=== PATIENT | female | born 2000 | race Caucasian/White ===

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

== ENCOUNTER 2019-07-24 08:14 | Inpatient (IN) | payer MEDICAID, OTHER ==
[~2019-07-24] VITALS: Ht 165.1 cm; Wt 60.3 kg
[~2019-07-24 08:14] MED LIST: DIVA500T52 PO; OLAN10TA20 PO
[2019-07-24] MEDS ORDERED: LORazepam 1 MG TABLET PO ONE ×2 (08:45)
[2019-07-24] MEDS ORDERED: HALOPERIDOL 5 MG TABLET PO ONE (08:45)
[2019-07-24] MEDS ORDERED: DiphenhydrAMINE HCL 25 MG CAPSULE PO ONE (08:45)
[2019-07-24 08:47] LABS: BASOPHILS % (AUTO) 0.7 % (0.0-2.0); EOSINOPHILS % (AUTO) 0 % (1.0-6.0); HEMATOCRIT 41.4 % (36-46); HEMOGLOBIN 14.1 g/dL (12.0-16.0); LYMPHOCYTES # (AUTO) 2.3 K/uL (1.0-4.8); LYMPHOCYTES % (AUTO) 16.8 % (22.0-44.0); MEAN CORPUSCULAR HEMOGLOBIN 30.2 pg (26.0-34.0); MEAN CORPUSCULAR HGB CONC 34.1 G/dL (31.0-37.0); MEAN CORPUSCULAR VOLUME 89 fL (80-100); MONOCYTES # (AUTO) 0.9 K/uL (0.1-1.0); MONOCYTES % (AUTO) 6.5 % (2.0-9.0); NEUTROPHILS # (AUTO) 10.3 K/uL (1.8-7.7); PLATELET COUNT (AUTO) 335 K/uL (150-450); RED BLOOD CELL COUNT(AUTO) 4.66 MIL/uL (4.00-5.20); RED CELL DISTRIBUTION WIDTH 12.8 % (11.5-14.5)
[2019-07-24 08:51] LABS: ANION GAP 11 mmol/L (8-16); CALCIUM, TOTAL 9.1 mg/dL (8.8-10.5); CARBON DIOXIDE 27 mmol/L (22-29); CHLORIDE 102 mmol/L (98-107); CREATININE 0.87 mg/dL (0.60-1.30); GLOMERULAR FILTR. RATE CALC > 60 mL/min (>60); GLUCOSE,RANDOM 87 mg/dL (70-110); POTASSIUM 3.1 mmol/L (3.5-5.1); SODIUM SERUM 140 mmol/L (136-145); UREA NITROGEN, BLOOD 10 mg/dL (7-18)
[2019-07-24 09:02] LABS: ALANINE AMINOTRANSFERASE 25 U/L (12-78); ALBUMIN 3.8 g/dL (3.4-5.0); ALKALINE PHOSPHATASE 92 U/L (46-116); ASPARTATE AMINOTRANSFERASE 16 U/L (15-37); BILIRUBIN,TOTAL 0.6 mg/dL (0.1-1.0); HCG,QUANTITATIVE < 1 mIU/mL (0-6); TOTAL PROTEIN, SERUM 7.7 g/dL (6.4-8.2); VALPROIC ACID 80 mcg/mL (50-100)
[2019-07-24] MEDS ORDERED: POTASSIUM CHLORIDE 20 MEQ ER TABLET PO ONE (09:30)
[2019-07-24 09:38] LABS: AMPHET/METH SCREEN,URINE POSITIVE (NEGATIVE); BARBITURATE SCREEN, URINE NEGATIVE (NEGATIVE); BENZODIAZEPINES SCREEN,URINE NEGATIVE (NEGATIVE); CANNABINOID SCREEN,URINE POSITIVE (NEGATIVE); COCAINE SCREEN,URINE NEGATIVE (NEGATIVE); METHADONE SCREEN, URINE NEGATIVE (NEGATIVE); OPIATE SCREEN,URINE NEGATIVE (NEGATIVE)
[2019-07-24 09:39] LABS: PHENCYCLIDINE SCREEN,URINE NEGATIVE (NEGATIVE)
[2019-07-24 16:00] VITALS: BP 128/78
[2019-07-24] MEDS ORDERED: GuaiFENesin/D-METHORPHAN [SUGAR-FREE] 200-20MG/10 ML SYRUP UDCUP PO PRN (16:15)
[2019-07-24] MEDS ORDERED: MAG HYDROX/AL HYDROX/SIMETH ES 30 ML SUSPENSION UDCUP PO PRN (16:15)
[2019-07-24] MEDS ORDERED: DOCUSATE SODIUM 100 MG CAPSULE PO PRN (16:15)
[2019-07-24] MEDS ORDERED: IBUPROFEN 400 MG TABLET PO PRN (16:15)
[2019-07-24] MEDS ORDERED: ACETAMINOPHEN 325 MG TABLET PO PRN (16:15)
[2019-07-24] MEDS ORDERED: NICOTINE 14 MG/24 HOUR PATCH TD PRN (16:15)
[2019-07-24] MEDS ORDERED: MAGNESIUM HYDROXIDE SUSPENSION 30 ML UDCUP PO PRN (16:15)
[2019-07-24] MEDS ORDERED: PETROLATUM,WHITE 28 GM JELLY TP PRN (16:15)
[2019-07-24] MEDS ORDERED: LOPERAMIDE HCL 2 MG CAPSULE PO PRN (16:15)
[2019-07-24] MEDS ORDERED: ALBUTEROL SULFATE HFA 90 MCG/PUFF 8 GM INHALER IH PRN (16:15)
[2019-07-24] MEDS ORDERED: CloNIDine HCL 0.1 MG TABLET PO PRN (16:15)
[2019-07-24] MEDS ORDERED: ONDANSETRON HCL 4 MG TABLET PO PRN (16:15)
[2019-07-24] MEDS ORDERED: INFLUENZA VIRUS VACCINE QVS 2019-20 (3YR+)/PF 60 MCG/0.5 ML SYRINGE IM ONE (16:45)
[2019-07-25 00:29] VITALS: BP 111/71
[2019-07-25 07:31] LABS: BASOPHILS % (AUTO) 1.4 % (0.0-2.0); EOSINOPHILS % (AUTO) 1.4 % (1.0-6.0); HEMATOCRIT 40.4 % (36-46); HEMOGLOBIN 13.6 g/dL (12.0-16.0); LYMPHOCYTES # (AUTO) 2.7 K/uL (1.0-4.8); LYMPHOCYTES % (AUTO) 44.6 % (22.0-44.0); MEAN CORPUSCULAR HEMOGLOBIN 30.1 pg (26.0-34.0); MEAN CORPUSCULAR HGB CONC 33.6 G/dL (31.0-37.0); MEAN CORPUSCULAR VOLUME 90 fL (80-100); MONOCYTES # (AUTO) 0.5 K/uL (0.1-1.0); MONOCYTES % (AUTO) 7.8 % (2.0-9.0); NEUTROPHILS # (AUTO) 2.7 K/uL (1.8-7.7); NEUTROPHILS % (AUTO) 44.8 % (40.0-70.0); PLATELET COUNT (AUTO) 305 K/uL (150-450); RED BLOOD CELL COUNT(AUTO) 4.51 MIL/uL (4.00-5.20)
[2019-07-25 07:56] LABS: ALANINE AMINOTRANSFERASE 21 U/L (12-78); ALBUMIN 3.2 g/dL (3.4-5.0); ALKALINE PHOSPHATASE 87 U/L (46-116); ANION GAP 4 mmol/L (8-16); ASPARTATE AMINOTRANSFERASE 13 U/L (15-37); BILIRUBIN,TOTAL 0.5 mg/dL (0.1-1.0); CALCIUM, TOTAL 8.6 mg/dL (8.8-10.5); CARBON DIOXIDE 31 mmol/L (22-29); CHLORIDE 103 mmol/L (98-107); CHOL/HDL RATIO 2.2 (3.9-5.7); CHOLESTEROL 142 mg/dL (131-200); CREATININE 0.73 mg/dL (0.60-1.30); FREE T4 (FREE THYROXINE) 1.17 ng/dL (0.76-1.46); GLOMERULAR FILTR. RATE CALC > 60 mL/min (>60); GLUCOSE,RANDOM 84 mg/dL (70-110); HCG,QUANTITATIVE 1 mIU/mL (0-6); HDL CHOLESTEROL 64 mg/dL (40-60); LDL CHOL (CALC.) 72 mg/dL (0-130); POTASSIUM 4.4 mmol/L (3.5-5.1); SODIUM SERUM 138 mmol/L (136-145); THYROID STIMULATING HORMONE 1.32 uIU/mL (0.36-3.74); TOTAL PROTEIN, SERUM 6.4 g/dL (6.4-8.2); TRIGLYCERIDES 30 mg/dL (15-150); UREA NITROGEN, BLOOD 11 mg/dL (7-18); VALPROIC ACID 33 mcg/mL (50-100)
[2019-07-25 08:08] VITALS: BP 110/69
[2019-07-25] MEDS: DIVALPROEX SODIUM 500 MG ER TABLET PO SCH ×2 (10:29→20:02)
[2019-07-25] MEDS: LORazepam 2 MG TABLET PO PRN (10:29)
[2019-07-25] MEDS: OLANZapine 10 MG TABLET PO SCH ×2 (10:29→20:02)
[2019-07-25 19:01] VITALS: BP 114/67
[2019-07-26 05:02] VITALS: BP 99/74
[2019-07-26] MEDS: HALOPERIDOL 5 MG TABLET PO PRN ×2 (07:29→15:52)
[2019-07-26] MEDS: LORazepam 2 MG TABLET PO PRN ×2 (07:29→15:52)
[2019-07-26 08:20] VITALS: BP 134/102
[2019-07-26] MEDS: OLANZapine 10 MG TABLET PO SCH ×2 (09:43→20:35)
[2019-07-26] MEDS: DIVALPROEX SODIUM 500 MG ER TABLET PO SCH ×2 (09:43→20:35)
[2019-07-27 05:39] VITALS: BP 123/57
[2019-07-27 08:12] VITALS: BP 128/97
[2019-07-27] MEDS: DIVALPROEX SODIUM 500 MG ER TABLET PO SCH ×2 (08:28→20:04)
[2019-07-27] MEDS: OLANZapine 10 MG TABLET PO SCH ×2 (08:28→20:04)
[2019-07-27] MEDS: HALOPERIDOL 5 MG TABLET PO PRN (09:00)
[2019-07-27] MEDS: LORazepam 2 MG TABLET PO PRN ×2 (09:00→20:04)
[2019-07-27 16:56] VITALS: BP 132/85
[2019-07-28 05:12] VITALS: BP 145/66
[2019-07-28 08:28] VITALS: BP 136/88
[2019-07-28] MEDS ORDERED: HALOPERIDOL LACTATE 5 MG/ML VIAL IM PRN ×2 (08:30)
[2019-07-28] MEDS: OLANZapine 10 MG TABLET PO SCH ×2 (08:44→20:01)
[2019-07-28] MEDS: DIVALPROEX SODIUM 500 MG ER TABLET PO SCH ×2 (08:44→20:00)
[2019-07-28 16:43] VITALS: BP 110/69
[2019-07-29 01:01] VITALS: BP 105/62
[2019-07-29 08:05] VITALS: BP 106/69
[2019-07-29] MEDS: DIVALPROEX SODIUM 500 MG ER TABLET PO SCH ×2 (08:11→20:02)
[2019-07-29] MEDS: OLANZapine 10 MG TABLET PO SCH ×2 (08:11→20:01)
[2019-07-29] MEDS: LORazepam 2 MG TABLET PO PRN ×2 (08:12→20:01)
[2019-07-29 16:00] VITALS: BP 125/74
[2019-07-29] MEDS: HALOPERIDOL 5 MG TABLET PO PRN (20:02)
[2019-07-30 01:47] VITALS: BP 114/75
[2019-07-30 08:09] VITALS: BP 110/66
[2019-07-30] MEDS: DIVALPROEX SODIUM 500 MG ER TABLET PO SCH ×2 (08:32→20:46)
[2019-07-30] MEDS: OLANZapine 10 MG TABLET PO SCH ×2 (08:32→20:46)
[2019-07-30] MEDS: LORazepam 2 MG TABLET PO PRN (08:33)
[2019-07-30 16:47] VITALS: BP 113/67
[2019-07-31 05:02] VITALS: BP 105/66
[2019-07-31 08:09] VITALS: BP 102/60
[2019-07-31] MEDS: DIVALPROEX SODIUM 500 MG ER TABLET PO SCH ×2 (09:12→20:10)
[2019-07-31] MEDS: OLANZapine 10 MG TABLET PO SCH ×2 (09:12→20:10)
[2019-07-31 16:36] VITALS: BP 123/84
[2019-08-01 06:16] VITALS: BP 103/62
[2019-08-01 08:09] VITALS: BP 104/62
[2019-08-01] MEDS: OLANZapine 10 MG TABLET PO SCH ×2 (08:09→20:17)
[2019-08-01] MEDS: DIVALPROEX SODIUM 500 MG ER TABLET PO SCH ×2 (08:09→20:17)
[2019-08-01 16:07] VITALS: BP 129/81
[2019-08-02 06:35] VITALS: BP 110/69
[2019-08-02] MEDS: DIVALPROEX SODIUM 500 MG ER TABLET PO SCH ×2 (08:55→20:37)
[2019-08-02] MEDS: OLANZapine 10 MG TABLET PO SCH ×2 (08:55→20:38)
[2019-08-02 16:46] VITALS: BP 114/73
[2019-08-02] MEDS: ZOLPIDEM TARTRATE 10 MG TABLET PO PRN (20:38)
[2019-08-03 03:23] VITALS: BP 101/68
[2019-08-03 08:12] VITALS: BP 119/74
[2019-08-03] MEDS: DIVALPROEX SODIUM 500 MG ER TABLET PO SCH ×2 (08:57→20:49)
[2019-08-03] MEDS: OLANZapine 10 MG TABLET PO SCH ×2 (08:57→20:49)
[2019-08-03 16:05] VITALS: BP 101/69
[2019-08-03] MEDS: ZOLPIDEM TARTRATE 10 MG TABLET PO PRN (22:14)
[2019-08-04 04:13] VITALS: BP 102/68
[2019-08-04] MEDS: OLANZapine 10 MG TABLET PO SCH ×2 (09:04→20:11)
[2019-08-04] MEDS: DIVALPROEX SODIUM 500 MG ER TABLET PO SCH ×2 (09:04→20:11)
[2019-08-04 09:42] VITALS: BP 113/63
[2019-08-04 16:00] VITALS: BP 108/70
[2019-08-04] MEDS: ZOLPIDEM TARTRATE 10 MG TABLET PO PRN (22:10)
[2019-08-05 05:03] VITALS: BP 104/63
[2019-08-05] MEDS: OLANZapine 10 MG TABLET PO SCH (08:07)
[2019-08-05] MEDS: DIVALPROEX SODIUM 500 MG ER TABLET PO SCH (08:07)
[2019-08-05 08:08] VITALS: BP 116/71
[2019-08-05] MEDS ORDERED: DIVA500T52 PO ×3 (08:59→09:35)
[2019-08-05] MEDS ORDERED: OLAN10TA20 PO (08:59)
[2019-08-05] MEDS ORDERED: OLAN10TA3 PO (09:36)
[2019-08-10] MEDS ORDERED: OLAN2.5T3 PO (14:12)
== END 2019-08-05 12:10 | disposition home or self-care (01) | DRG 750 ==
LOC: EMS 08:15 → B3A 13:14
DX: F25.1 Schizoaffective disorder, depressive type (principal); I95.9 Hypotension, unspecified; R45.851 Suicidal ideations; F15.10 Other stimulant abuse, uncomplicated; F12.10 Cannabis abuse, uncomplicated; K21.9 Gastro-esophageal reflux disease without esophagitis; Z79.899 Other long term (current) drug therapy; Z83.3 Family history of diabetes mellitus; Z91.5 Personal history of self-harm
CPT/HCPCS: 83036; 84439; 84443; G0480